=== PATIENT | male | born 1975 | race Caucasian/White ===

== ENCOUNTER 2016-06-18 15:46 | Emergency (ER) | payer MEDICARE ==
[~2016-06-18] VITALS: Ht 170.2 cm; Wt 79.0 kg
[2016-06-18 15:53] VITALS: BP 149/98; PULSE 78; RESP 16; TEMP 97.8; O2SAT 100
[2016-06-18 16:53] VITALS: BP_SYST 158; BP_SYST 160; BP_DIAS 102; BP_DIAS 107; RESP 16
[2016-06-18] MEDS ORDERED: SODIUM CHLORIDE 0.9% FLUSH 5 ML FLUSH IVF PRN (17:30)
[2016-06-18 17:42] LABS: AUTOMATED NEUTROPHIL # 10.6 TH/MM3 (1.8-7.7); BASOPHIL # 0.4 TH/MM3 (0-0.2); BASOPHIL % 3.1 % (0.0-2.0); EOSINOPHIL # 0.1 TH/MM3 (0-0.4); EOSINOPHIL % 0.5 % (0.0-4.0); HEMATOCRIT 38.1 % (39.0-51.0); LYMPH % 11.8 % (9.0-44.0); LYMPHOCYTE # 1.5 TH/MM3 (1.0-4.8); MEAN CORPUSCULAR HEMOGLOBIN 29.7 PG (27.0-34.0); MEAN CORPUSCULAR HGB CONC 33.7 % (32.0-36.0); MONO % 3.7 % (0.0-8.0); NEUT % 80.9 % (16.0-70.0); PLATELET COUNT 323 TH/MM3 (150-450); RED BLOOD COUNT 4.33 MIL/MM3 (4.50-5.90); RED CELL DISTRIBUTION WIDTH 14.4 % (11.6-17.2); WHITE BLOOD COUNT 13.1 TH/MM3 (4.0-11.0)
[2016-06-18 17:49] LABS: CHLORIDE 102 MEQ/L (98-107); POTASSIUM 3.6 MEQ/L (3.5-5.1); SODIUM (NA) 141 MEQ/L (136-145)
--- NOTE | 2016-06-18 17:51 | PD ---
HPI Chief Complaint: Dizziness Time Seen by Provider: 17:19 Travel History International Travel<30 days: No Contact w/Intl Traveler<30days: No Traveled to known affect area: No History of Present Illness HPI 41-year-old male with history of spinal spondylosis, left iritis, presents to the ER today because he had 2 syncopal episodes, one yesterday, one today. He states that he starts feeling lightheaded and passes out. Denies any chest pains, shortness of breath, or other symptoms prior to episode. He states that he has not been vomiting, having diarrhea, or any other symptoms. He has not had previous issues. Modifying Factors: None Associated Signs & Symptoms: Syncopal episodes Risk Factors: None PFSH Past Medical History Hx Anticoagulant Therapy: No Diminished Hearing: No Medical other: Yes (SPINAL SPONDYLOISTHESIS) Tetanus Vaccination: < 5 Years Influenza Vaccination: No Social History Alcohol Use: No Tobacco Use: Yes (2 PPD) Substance Use: No Allergies-Medications (Allergen,Severity, Reaction): Coded Allergies: No Known Allergies (Unverified , 06/18/16) Review of Systems Except as stated in HPI: all other systems reviewed are Neg Physical Exam Narrative GENERAL: Well-nourished, well-developed middle age white male patient in no acute distress. SKIN: Warm and dry. HEAD: Normocephalic. EYES: No scleral icterus. Left eye corneal injection with no drainage. NECK: Supple, trachea midline. CARDIOVASCULAR: Regular rate and rhythm without murmurs, gallops, or rubs. RESPIRATORY: Breath sounds equal bilaterally. No accessory muscle use. GASTROINTESTINAL: Abdomen soft, non-tender, nondistended. MUSCULOSKELETAL: No cyanosis, or edema. BACK: Nontender without obvious deformity. No CVA tenderness. Data Data Last Documented VS Vital Signs Date Time Temp Pulse Resp B/P Pulse Ox O2 Delivery O2 Flow Rate FiO2 06/18/16 17:02 87 16 99 Room Air 06/18/16 16:53 160/107 154/102 158/102 06/18/16 15:53 97.8 Orders Electrocardiogram (06/18/16 17:19) Complete Blood Count With Diff (06/18/16 17:19) Comprehensive Metabolic Panel (06/18/16 17:19) Magnesium (Mg) (06/18/16 17:19) Ckmb (Isoenzyme) Profile (06/18/16 17:19) Troponin I (06/18/16 17:19) Chest, Single Ap (06/18/16 17:19) Ecg Monitoring (06/18/16 17:19) Iv Access Insert/Monitor (06/18/16 17:19) Oximetry (06/18/16 17:19) Sodium Chloride 0.9% Flush (Ns Flush) (06/18/16 17:30) CKMB (06/18/16 17:32) CKMB% (06/18/16 17:32) Labs Laboratory Tests Test 06/18/16 17:32 White Blood Count 13.1 TH/MM3 Red Blood Count 4.33 MIL/MM3 Hemoglobin 12.8 GM/DL Hematocrit 38.1 % Mean Corpuscular Volume 88.0 FL Mean Corpuscular Hemoglobin 29.7 PG Mean Corpuscular Hemoglobin 33.7 % Concent Red Cell Distribution Width 14.4 % Platelet Count 323 TH/MM3 Mean Platelet Volume 8.1 FL Neutrophils (%) (Auto) 80.9 % Lymphocytes (%) (Auto) 11.8 % Monocytes (%) (Auto) 3.7 % Eosinophils (%) (Auto) 0.5 % Basophils (%) (Auto) 3.1 % Neutrophils # (Auto) 10.6 TH/MM3 Lymphocytes # (Auto) 1.5 TH/MM3 Monocytes # (Auto) 0.5 TH/MM3 Eosinophils # (Auto) 0.1 TH/MM3 Basophils # (Auto) 0.4 TH/MM3 CBC Comment DIFF FINAL Differential Comment Sodium Level 141 MEQ/L Potassium Level 3.6 MEQ/L Chloride Level 102 MEQ/L Carbon Dioxide Level 31.0 MEQ/L Anion Gap 8 MEQ/L Blood Urea Nitrogen 6 MG/DL Creatinine 0.64 MG/DL Estimat Glomerular Filtration 139 ML/MIN Rate Random Glucose 86 MG/DL Calcium Level 8.6 MG/DL Magnesium Level 2.4 MG/DL Total Bilirubin 0.3 MG/DL Aspartate Amino Transf 9 U/L (AST/SGOT) Alanine Aminotransferase 10 U/L (ALT/SGPT) Alkaline Phosphatase 120 U/L Total Creatine Kinase 148 U/L Creatine Kinase MB 0.9 NG/ML Troponin I LESS THAN 0.02 NG/ML Total Protein 7.8 GM/DL Albumin 3.6 GM/DL [facility] Medical Decision Making Medical Screen Exam Complete: Yes Emergency Medical Condition: Yes Medical Record Reviewed: Yes Interpretation(s) EKG shows NSR, no ST elevation or depression, and no arrhythmias. No significant T-wave inversions. No QT prolongation. No delta waves. Laboratory Tests Test 06/18/16 17:32 White Blood Count 13.1 TH/MM3 (4.0-11.0) Red Blood Count 4.33 MIL/MM3 (4.50-5.90) Hemoglobin 12.8 GM/DL (13.0-17.0) Hematocrit 38.1 % (39.0-51.0) Neutrophils (%) (Auto) 80.9 % (16.0-70.0) Basophils (%) (Auto) 3.1 % (0.0-2.0) Neutrophils # (Auto) 10.6 TH/MM3 (1.8-7.7) Basophils # (Auto) 0.4 TH/MM3 (0-0.2) Blood Urea Nitrogen 6 MG/DL (7-18) Aspartate Amino Transf 9 U/L (15-37) (AST/SGOT) Alanine Aminotransferase 10 U/L (12-78) (ALT/SGPT) Alkaline Phosphatase 120 U/L (45-117) Troponin I LESS THAN 0.02 NG/ML (0.02-0.05) Differential Diagnosis Syncopedysrhythmias versus dehydration versus metabolic issues versus vasovagal Narrative Course EKG did not show any signs of significant dysrhythmias. Lab work shows no significant dehydration or metabolic issues. Lab work does show some signs of basophilia and elevated white blood cell counts. At this point, suspect that it is secondary to his inflammatory disease. He does not have any fever here in the ER. He otherwise feels fine between episodes of syncope. He is not orthostatic in the ER. At this point, patient's vital signs are fairly stable in my plan would be to release him with follow-up to primary care physician. He may need further workup if symptoms continue. Return for any worsening in symptoms as necessary. The plan has been discussed with him and he states understanding. Diagnosis Primary Impression: Syncope Additional Instructions: Follow-up closely with your primary care doctor. Return for any further episodes, fevers, or new symptoms as needed. Avoid climbing to high places or operating heavy machinery. Disposition: 01 DISCHARGE HOME Condition: Stable [place],Rewadee MD Jun 18, 2016 17:51
[2016-06-18 17:52] LABS: ANION GAP 8 MEQ/L (5-15)
[2016-06-18 17:53] LABS: BLOOD UREA NITROGEN 6 MG/DL (7-18); MAGNESIUM 2.4 MG/DL (1.5-2.5)
[2016-06-18 17:56] LABS: ALT (GPT) 10 U/L (12-78); AST (GOT) 9 U/L (15-37); GLOMERULAR FILTRATION RATE 139 ML/MIN (>89)
[2016-06-18 17:57] LABS: TOTAL BILIRUBIN ADULT 0.3 MG/DL (0.2-1.0)
[2016-06-18 17:58] LABS: CREATINE KINASE 148 U/L (39-308)
[2016-06-18 17:59] LABS: ALKALINE PHOSPHATASE 120 U/L (45-117); HEMO FLAGS DIFF FINAL
[2016-06-18 18:11] LABS: CKMB 0.9 NG/ML (0.5-3.6)
--- NOTE | 2016-06-18 18:21 | RADHPO ---
EXAM DATE/TIME: 06/18/2016 18:01 [facility] COMPARISON: No previous studies available for comparison. INDICATIONS : Dizziness. MEDICAL HISTORY : None. SURGICAL HISTORY : None. ENCOUNTER: Initial ACUITY: 2 days PAIN SCORE: 0/10 LOCATION: Bilateral chest FINDINGS: A single view of the chest demonstrates the lungs to be symmetrically aerated without evidence of mas s, infiltrate or effusion. The cardiomediastinal contours are unremarkable. Osseous structures are intact. CONCLUSION: No acute disease. Kane Vazquez MD on June 18, 2016 at 18:19 Board Certified Radiologist. This report was verified electronically.
[2016-06-18 18:53] VITALS: BP 157/95; PULSE 75; RESP 18; O2SAT 97
--- NOTE | 2016-06-19 13:04 | EKG ---
Date Performed: 06/18/2016 Time Performed: 17:25:22 PTAGE: 41 years EKG: Sinus rhythm Normal ECG NO PREVIOUS TRACING DOCTOR: Sukumar Wilson Interpretating Date/Time 06/19/2016 12:59:28
== END 2016-06-18 19:02 | disposition home or self-care (01) ==
LOC: PHEFT 15:46
DX: R55 Syncope and collapse (principal); H20.9 Unspecified iridocyclitis; M47.9 Spondylosis, unspecified; F17.210 Nicotine dependence, cigarettes, uncomplicated
CPT/HCPCS: 71010; 80053; 82550; 82552; 83735; 84484; 85025; 93005